=== PATIENT | female | born 1980 | race Caucasian/White ===

== ENCOUNTER 2017-08-10 04:48 | Emergency (ER) | payer OTHER, MEDICAID ==
[~2017-08-10] VITALS: Ht 162.6 cm; Wt 68.0 kg
[2017-08-10] MEDS ORDERED: BENADRYL25 MG PO (04:57)
[2017-08-10 05:49] VITALS: BP 144/87
[2017-08-10] MEDS ORDERED: XANAX 0.5 MG0.5 MG PO (05:50)
--- NOTE | 2017-08-10 15:38 | EKG ---
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: RACHNA : 1980 Requested By: Mariely Maradiaga Order Number: [id number] MD: Efrain Mcclellan Measurements Intervals [place] Rate: 103 P: 32 IN: 164 QRS: 13 QRSD: 91 T: 29 QT: 360 QTc: 471 Interpretive Statements Sinus tachycardia Possible left atrial enlargement No previous ECG available for comparison Electronically Signed On 08-10-2017 15:37:55 [employer]KS MANAGER by Efrain Mcclellan [email or web address] <ELECTRONICALLY SIGNED> By: Efrain Mcclellan MD, [facility] 08/10/17 1537 0514 05 Efrain Mcclellan MD, FACC /EPI
== END 2017-08-10 05:50 | disposition home or self-care (01) ==
LOC: M.ERS 04:48
DX: F41.9 Anxiety disorder, unspecified (principal); Z88.2 Allergy status to sulfonamides

== ENCOUNTER 2021-02-18 14:13 | Emergency (ER) | payer OTHER, MEDICAID ==
[~2021-02-18] VITALS: Ht 162.6 cm; Wt 72.6 kg
[~2021-02-18 14:13] MED LIST: BENADRYL25 MG PO; XANAX 0.5 MG0.5 MG PO
[2021-02-18 15:10] VITALS: BP 153/93
== END 2021-02-18 15:11 | disposition home or self-care (01) ==
LOC: M.ERS 14:13
DX: F41.0 Panic disorder [episodic paroxysmal anxiety] (principal); F41.9 Anxiety disorder, unspecified; Z88.2 Allergy status to sulfonamides